=== PATIENT | male | born 1995 | race Caucasian/White ===

== ENCOUNTER 2020-10-18 13:09 | Emergency (ER) | payer SELFPAY ==
[2020-10-18 13:14] VITALS: BP 131/75; PULSE 76; RESP 16; TEMP 37.1; O2SAT 98
--- NOTE | 2020-10-18 13:17 | ED.GENADUL_ITS ---
Discharge Plan Disposition Patient Disposition: HOME Condition: Stable Discharge Details Clinical Impression: Abdominal pain, Nausea vomiting and diarrhea Primary Care Provider: None,None ED Provider: Gregg Mckinney Home Meds and New Rx's Prescriptions: New ondansetron HCl [Zofran] 4 mg tablet 4 mg PO Q8H PRNQty: 10 RF: 0 Discharge Instructions Instructions: Acute Nausea and Vomiting (ED), Abdominal Pain (ED) Additional Instructions: Zofran as directed. Ndbl-[id number] Imodium as directed. Clear liquid diet, advance to bananas, rice, applesauce, toast. Plenty of fluids to avoid dehydration. Please watch for new or worsening symptoms and return to the ER for any concerns. Unfortunately at this time you are unable to provide a stool sample, if symptoms persist you will likely need to have your stool tested. I have also placed you on the care management list to help expedite outpatient follow-up. Stand Alone Forms: Work Release Medical Decision Making This is a 24-year-old gentleman presenting for abdominal pain, nausea, vomiting, diarrhea that began on Friday after eating chili from a gas station. Denies any other symptoms. Has not taken any fmyv-bam-bsgveay medications for his symptoms. Clinically he appears well, nontoxic. He is afebrile. Abdomen is minimally tender in the epigastric region but there is no guarding, rebound, rigidity. Differential includes not excluded to food poisoning, gastroenteritis, appendicitis, bowel obstruction, colitis, etc. Will obtain routine laboratory values, give IV fluids, Zofran, reassess. Vital signs remained unremarkable. Laboratory values reveal a white blood cell count of 5.17 hemoglobin 14.9 hematocrit 44.6 platelet count 185. Electrolytes unremarkable. Creatinine 0.74 with a GFR greater than 60. LFTs minimally elevated. Lipase 195. Urinalysis unremarkable. Upon reassessment patient reports that his nausea has resolved completely. Reports mild epigastric discomfort. Will get a GI cocktail. Patient witnessed ambulating steadily to the restroom. Patient unable to provide stool sample here in the ER. He reports that he is feeling asymptomatic and is comfortable discharge. We discussed I will provide a prescription for Zofran, to use lhdc-hwc-uxazjca Imodium, and I will provide a work note for him. Discussed the importance of returning for new or worsening symptoms, would likely need to supply a stool sample done. Otherwise we have placed him on the care management with expedite outpatient care and primary care establishment Medical Records Medical records reviewed: Yes I reviewed the patient's medical records. Lab Data Lab results reviewed: Yes I reviewed the patient's lab results. Labs: Laboratory Tests Range/Units 10/18/20 10/18/20 10/18/20 13:30 13:30 14:25 WBC (4.4-10.8) 10^3/uL 5.17 RBC (4.36-5.78) 10^6/uL 4.42 Hgb (13.5-17.5) g/dL 14.9 Hct (40.0-50.0) % 44.6 MCV (80-95) fL 100.9 H MCH (27.0-33.0) pg 33.7 H MCHC (32.0-36.0) % 33.4 RDW (11.8-14.1) % 11.7 L Plt Count (130-400) 10^3/uL 185 MPV (8.0-11.0) fL 9.7 Immature Gran % 0.2 Neutrophils % 51.6 Lymphocytes % 31.1 Monocytes % 12.2 Eosinophils % 3.9 Basophils % 1.0 Nucleated RBC % % 0 Absolute Neutrophils (1.2-6.7) 10^3/uL 2.67 Absolute Lymphocytes (1.2-3.4) 10^3/uL 1.61 Absolute Monocytes (0.1-0.8) 10^3/uL 0.63 Absolute Eosinophils (0.0-0.7) 10^3/uL 0.20 Absolute Basophils (0.0-0.2) 10^3/uL 0.05 Sodium (136-145) mmol/L 139 Potassium (3.5-5.1) mmol/L 3.8 Chloride (98-107) mmol/L 104 Carbon Dioxide (21.0-32.0) mmol/L 24.7 Anion Gap (3-11) mmol/L 10.3 BUN (7-18) mg/dL 4 L Creatinine (0.70-1.30) mg/dL 0.75 Estimated GFR/1.73 m2 (mL/min/1.73m2) >= 60.00 Glucose (74-106) mg/dL 93 Calcium (8.5-10.1) mg/dL 9.2 Total Bilirubin (0.2-1.0) mg/dL 0.7 AST (15-37) U/L 101 H ALT (16-63) U/L 121 H Alkaline Phosphatase (46-116) U/L 121 H Total Protein (6.4-8.2) g/dL 7.7 Albumin (3.4-5.0) g/dL 4.2 Lipase (73-393) U/L 195 Urine Color (Yellow) Yellow Urine Clarity (Clear) Clear Urine pH (5-8) 7.5 Ur Specific [place] (1.005-1.025) 1.015 Urine Protein (Negative) mg/dL Negative Urine Ketones (Negative) mg/dL Negative Urine Blood (Negative) Negative Urine Nitrite (Negative) Negative Urine Bilirubin (Negative) Negative Urine Urobilinogen (Up TO 0.2) EU/dL 0.2 Ur Leukocyte Esterase (Negative) Negative Urine Glucose (Negative) mg/dL Negative HPI General Mode of arrival: ambulatory . Date/Time Provider Initiated Documentation: 10/18/20 13:10 . Limitations to Documentation: no limitations . Information obtained by: patient . HPI Narrative: This is a 24-year-old gentleman, denies any significant past medical history, presents to the ER for epigastric discomfort, nausea, vomiting, diarrhea going on for the past 3 days. He states that on Friday he ate some chili from a gas station, and his symptoms began several hours later. He denies any blood in his vomit. He denies any black tarry stools or bright red blood in his stools. He states that his diarrhea is mucousy-watery. Denies recent antibiotic therapy. Denies any lower abdominal discomfort or cramping. He has never had these symptoms before. He has not taken any rrry-vyf-gjilasi medications for his symptoms. He went to work yesterday, vomited there and they sent him home. He will require a work note to go back to work. Related Data Home Medications Medication Instructions Recorded Confirmed ondansetron HCl [Zofran] 4 mg PO Q8H PRN #10 tab 10/18/20 Previous Rx's Medication Instructions Recorded ondansetron HCl [Zofran] 4 mg PO Q8H PRN #10 tab 10/18/20 Allergies Allergy/AdvReac Type Severity Reaction Status Date / Time acetaminophen Allergy Severe Itching Unverified 10/18/20 13:22 bee venom protein (honey bee) Allergy Anaphylaxsi Unverified 10/18/20 13:23 s hydrocodone Allergy Unverified 10/18/20 13:22 morphine Allergy Unverified 10/18/20 13:22 venlafaxine HCl AdvReac Intermediate Agitation Unverified 10/18/20 13:22 [From Effexor] Review of Systems Constitutional Constitutional: Denies fatigue, Denies fever(s) and Denies headache(s) ENT Ears, Nose, Mouth, and Throat: Denies headache(s), Denies neck pain and Denies sore throat Cardiovascular Cardiovascular: Denies chest pain and Denies dyspnea Respiratory Respiratory: Denies cough and Denies dyspnea Gastrointestinal Gastrointestinal: Reports abdominal pain, Denies melena, Denies hematochezia, Denies constipation, Reports diarrhea, Reports nausea, Reports vomiting and Denies hematemesis Genitourinary Genitourinary: Denies dysuria Musculoskeletal Musculoskeletal: Denies neck pain Integumentary/Breasts Skin/Breast: Denies rash Neurologic Neurologic: Denies headache(s) Endocrine Endocrine: Denies fatigue [facility] Social History Smoking/Tobacco Use Status: Current every day Tobacco Type: cigarettes Smoking risk assessment performed?: Yes Alcohol Intake: current Alcohol Intake frequency: 3 or more drinks per day Alcohol type: hard liquor Drug use: Daily Substance use type: marijuana Do you feel safe at home: Yes Do you feel safe in your relationship?: Yes Exam Const General: cooperative, healthy appearing, comfortable and no acute distress Orientation: alert and awake [facility] Head: normal to inspection, normocephalic and atraumatic Mouth: moist mucous membranes Eyes General: appearance normal, both eyes and all related structures Conjunctivae: conjunctivae normal Sclera: sclerae normal Neck Neck: normal visual inspection, full ROM, no meningeal signs, trachea midline and supple Resp Effort & Inspection: normal respiratory effort and able to speak in complete sentences Auscultation: clear to auscultation bilaterally Cardio Rate: regular rate Rhythm: regular rhythm GI Inspection: normal to inspection Palpation: not firm, no guarding, no masses, no pulsatile masses and tender in the epigastrum (Mild); with no rebound tenderness Auscultation: normal bowel sounds Back/Spine/Pelvis Back: No back tenderness Skin General skin exam: no rashes or lesions noted Neuro General: patient alert, patient awake, moves all extremities and no focal motor deficits Cognition: normal cognition Speech: speech normal Gait: normal gait Motor: muscle tone normal throughout Sensory Exam: no sensory deficits noted Extrem General: normal to inspection, full ROM, capillary refill normal, no pedal edema and no calf tenderness Psych Appearance: grossly normal Mental Status: mental status grossly normal
[2020-10-18] MEDS: Normal Saline 1,000 ML 1000 ML IV (13:30)
[2020-10-18] MEDS: Ondansetron 4 MG/2 ML VIAL IVP (13:43)
[2020-10-18 13:46] LABS: Abs Immature Grans 0.01 10^3/uL (0.0-0.06); Absolute Basophil Count 0.05 10^3/uL (0.0-0.2); Absolute Lymphocyte Count 1.61 10^3/uL (1.2-3.4); Absolute Monocyte Count 0.63 10^3/uL (0.1-0.8); Absolute Neutrophil Count 2.67 10^3/uL (1.2-6.7); Eosinophils % 3.9; HCT 44.6 % (40.0-50.0); HGB 14.9 g/dL (13.5-17.5); Immature Grans % 0.2; Lymphocytes % 31.1; MCH 33.7 pg (27.0-33.0); MCHC 33.4 % (32.0-36.0); MCV 100.9 fL (80-95); MPV 9.7 fL (8.0-11.0); Monocytes % 12.2; Neutrophils % 51.6; Nucleated RBC 0 %; Platelet Count 185 10^3/uL (130-400); RBC 4.42 10^6/uL (4.36-5.78); RDW 11.7 % (11.8-14.1); RDW-SD 43.8 fL; WBC 5.17 10^3/uL (4.4-10.8)
[2020-10-18 14:01] LABS: ALT 121 U/L (16-63); AST 101 U/L (15-37); Albumin 4.2 g/dL (3.4-5.0); Alkaline Phosphatase 121 U/L (46-116); Anion Gap 10.3 mmol/L (3-11); BUN 4 mg/dL (7-18); Bilirubin, Total 0.7 mg/dL (0.2-1.0); CO2 24.7 mmol/L (21.0-32.0); CREATININE 0.75 mg/dL (0.70-1.30); Calcium 9.2 mg/dL (8.5-10.1); Chloride 104 mmol/L (98-107); Glucose 93 mg/dL (74-106); Lipase 195 U/L (73-393); Potassium 3.8 mmol/L (3.5-5.1); Sodium 139 mmol/L (136-145); Total Protein 7.7 g/dL (6.4-8.2)
--- NOTE | 2020-10-18 14:12 | NUR.NOTE ---
Nursing Note: Referral to establish care for patient given to Care Management. Tamica Marie
[2020-10-18 14:29] LABS: Bilirubin Negative (Negative); Blood Negative (Negative); Clarity Clear (Clear); Glucose Negative (Negative); Ketones Negative (Negative); Leukocyte Esterase Negative (Negative); Nitrite Negative (Negative); Specific Gravity 1.015 (1.005-1.025); Urobilinogen 0.2 EU/dL (Up TO 0.2); pH 7.5 (5-8)
[2020-10-18 14:52] VITALS: BP 110/61; PULSE 68; RESP 18; TEMP 36.8; O2SAT 99
--- NOTE | 2020-10-19 15:35 | CMPROGNOTE_ITS ---
- If Service Date Differs Date of service: 10/19/20 Time of Service: 15:35 Care Management Progress Note Will presents to the ED on 10/18/20 for abdominal pain. At the request of ED provider, IRENA coordinates a referral to Maggie Young NP, of [facility], on-call provider, to assist Armani in obtaining a follow up appointment and in establishing care with a PCP.
== END 2020-10-18 14:52 | disposition home or self-care (01) ==
PROVIDERS: Emergency Provider Physician Assistant
DX: R11.2 Nausea with vomiting, unspecified (principal); R19.7 Diarrhea, unspecified; R10.13 Epigastric pain
CPT/HCPCS: 36415; 80053; 83690; 96361; 96374; 99284; 81003; 85025; J2405

== ENCOUNTER 2020-11-07 14:48 | Emergency (ER) | payer MEDICAID, SELFPAY ==
--- NOTE | 2020-11-07 14:51 | ED.GENADUL_ITS ---
Discharge Plan Disposition Patient Disposition: HOME Condition: Improving Discharge Details Clinical Impression: Nausea, vomiting and diarrhea, Abdominal pain, Hepatomegaly, Alcohol abuse Primary Care Provider: None,None ED Provider: Marilyn Monroe Home Meds and New Rx's Prescriptions: New ondansetron 4 mg tablet,disintegrating 4 mg PO TID PRN (Reason: nausea and vomiting) Qty: 6 RF: 0 famotidine [Pepcid] 20 mg tablet 20 mg PO DAILY Qty: 14 RF: 0 Continued loperamide [Imodium A-D] 2 mg Tablet 2 mg PO Q4H PRNRF: 0 Discharge Instructions Instructions: Abuse of Alcohol (ED), Acute Nausea and Vomiting (ED), Acute Diarrhea (ED), Abdominal Pain (ED) Additional Instructions: Drink plenty of fluids and get plenty of rest. Take the Zofran as needed and directed for nausea and vomiting. Take the Pepcid daily as directed. Call the [facility] to discuss how to proceed with safely stopping drinking alcohol at [phone]. Return a stool sample to the hospital as directed. You will receive a call from care management regarding a follow-up appointment with a primary care doctor within the next week. Please return immediately to the hospital if you develop any worsening or new concerning symptoms such as fever, worsening vomiting or pain. Discharge Data Discharge Physician: Marilyn Monroe Medical Decision Making 24-year-old male with a history of anxiety, depression, chronic daily alcohol abuse who presents for vomiting, diarrhea and abdominal pain for the past few weeks. He was seen here on 10/09 for similar complaints and was noted to have some elevation of his LFTs but otherwise was discharged home after improvement with meds and given a prescription for Zofran. He states he did not fill this due to lack of funds. Patient appears somewhat uncomfortable. He is significantly tender in the right upper quadrant, left upper quadrant and epigastrium. No rigidity or guarding. Differential diagnosis includes pancreatitis, gastroenteritis, PUD, cholelithiasis, cholecystitis. Will place an IV, bolus IV fluids, screening labs, CT abdomen and pelvis and give Pepcid, GI cocktail and Zofran and reassess. Labs and imaging reviewed. Normal white blood cell count. Potassium 3.2. Elevation of T bili to 2.5, AST and ALT and alk phos slightly more elevated compared to previous. Lipase normal. CT abdomen and pelvis notes hepatomegaly and hepatic steatosis with possible enteritis. No evidence of gallstones. Patient reassessed and he feels better. 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 He appears nontoxic. Case and CT imaging reviewed with Dr. Gonzalez. More likely liver failure. Coagulation studies added but patient wanted to leave prior to these results. Discussed with patient that his excessive alcohol use is causing his hepatomegaly which could be causing a alcoholic gastritis or potential eventual liver failure. Patient is understanding of this possibility. He states he does not want to stay in the hospital. Through shared decision-making, will send patient home with Santa and Giacomo with plan for follow-up with the primary care doctor within the next week. He was also given [facility] information to safely stop drinking alcohol. We discussed the risks of abruptly stopping alcohol including or disability. Usual and customary return precautions given prior to discharge. Medical Records Medical records reviewed: Yes I reviewed the patient's medical records. Imaging Data Radiologic Study: Radiologist's impression: CT ABDOMEN PELVIS W CLINICAL HISTORY: epigastric/LUQ abd pain TECHNIQUE: Imaging Protocol: Axial computed tomography images with coronal and sagittal reformatted images were created and reviewed CONTRAST MATERIAL: Intravenous: Omnipaque 350 Contrast volume:100 mL Oral: No COMPARISON: No exams were available for comparison FINDINGS: ABDOMEN: Lung Bases: Normal where visualized. Liver: Decreased attenuation of the liver consistent with fatty infiltration. No measurable mass. The liver measures 22 cm in length. Portal, Superior Mesenteric, and Splenic Veins: Unremarkable. Gallbladder and Biliary Tract: No radiodense calculus or dilation. Pancreas: Normal density, no abnormal calcifications or inflammatory process. Spleen: Normal. Adrenals: No masses seen. Kidneys: Normal size, contour and axis. No radiodense stones or obstructive uropathy. No masses seen. Abdominal Aorta: Abdominal portion non-dilated. Bowel: Mild thickening of the wall of loops of small bowel in the left upper quadrant suspicious for enteritis. Appendix is unremarkable. Colonic diverticulosis but no evidence of acute diverticulitis. Peritoneal Cavity: No ascites, collection or mesenteric inflammatory response. No free air. Lymph Nodes: Within normal limits. Bones: Unremarkable. Soft Tissues: Unremarkable. PELVIS: Bladder: Symmetric distention, no gross wall thickening. Reproductive Organs: Unremarkable as visualized. Lymph Nodes: Within normal limits. Bones: Within normal limits. IMPRESSION: Bowel wall thickening in loops of of small bowel in the left upper quadrant suspicious for an infectious or inflammatory enteritis. Hepatomegaly and hepatic steatosis. Lab Data Lab results reviewed: Yes I reviewed the patient's lab results. Labs: Laboratory Tests Range/Units 11/07/20 11/07/20 11/07/20 15:20 15:20 15:20 WBC (4.4-10.8) 10^3/uL 5.34 RBC (4.36-5.78) 10^6/uL 4.51 Hgb (13.5-17.5) g/dL 15.2 Hct (40.0-50.0) % 44.3 MCV (80-95) fL 98.2 H MCH (27.0-33.0) pg 33.7 H MCHC (32.0-36.0) % 34.3 RDW (11.8-14.1) % 11.9 Plt Count (130-400) 10^3/uL 171 MPV (8.0-11.0) fL 10.3 Immature Gran % 0.2 Neutrophils % 49.1 Lymphocytes % 32.4 Monocytes % 13.1 Eosinophils % 3.9 Basophils % 1.3 Nucleated RBC % % 0 Absolute Neutrophils (1.2-6.7) 10^3/uL 2.62 Absolute Lymphocytes (1.2-3.4) 10^3/uL 1.73 Absolute Monocytes (0.1-0.8) 10^3/uL 0.70 Absolute Eosinophils (0.0-0.7) 10^3/uL 0.21 Absolute Basophils (0.0-0.2) 10^3/uL 0.07 Sodium (136-145) mmol/L 136 Potassium (3.5-5.1) mmol/L 3.2 L Chloride (98-107) mmol/L 98 Carbon Dioxide (21.0-32.0) mmol/L 25.6 Anion Gap (3-11) mmol/L 12.4 H BUN (7-18) mg/dL 4 L Creatinine (0.70-1.30) mg/dL 0.84 Estimated GFR/1.73 m2 (mL/min/1.73m2) >= 60.00 Glucose (74-106) mg/dL 92 Calcium (8.5-10.1) mg/dL 9.5 Magnesium (1.8-2.4) mg/dL 1.7 L Total Bilirubin (0.2-1.0) mg/dL 2.5 H AST (15-37) U/L 245 H ALT (16-63) U/L 171 H Alkaline Phosphatase (46-116) U/L 139 H Troponin I (<0.06) ng/mL < 0.05 Total Protein (6.4-8.2) g/dL 8.1 Albumin (3.4-5.0) g/dL 4.6 Lipase (73-393) U/L 244 HPI General Mode of arrival: ambulatory . Date/Time Provider Initiated Documentation: 11/07/20 14:50 . Limitations to Documentation: no limitations . Information obtained by: patient . HPI Narrative: Patient is a 24-year-old male with a history of anxiety and depression and heavy alcohol abuse presents for vomiting, diarrhea and abdominal pain for the last several weeks. Patient was seen here on 10/18 for similar symptoms and was [facility] which he states he was unable to fill due to lack of funds . He states he has been taking Imodium with some relief of his diarrhea. He has been vomiting 6-7 times daily which mainly consists of food and then bile. He states he has been having 8-10 episodes of watery brown diarrhea daily. He states his abdominal pain is intermittent, sharp, and the epigastrium, left upper and right upper quadrant. He states the pain is usually worse with movement after eating a large meal. He denies any fever, chest pain or shortness of breath. He states he drank 1/5 and a half of vodka daily for the past several years. He also smokes 1 pack cigarettes weekly and smokes marijuana daily. Patient states his mom of complications of pancreatitis in her 30s. Related Data Home Medications Medication Instructions Recorded Confirmed famotidine [Pepcid] 20 mg PO DAILY #14 tab 11/07/20 loperamide [Imodium A-D] 2 mg PO Q4H PRN 11/07/20 11/07/20 ondansetron 4 mg PO TID PRN #6 tab 11/07/20 Previous Rx's Medication Instructions Recorded famotidine [Pepcid] 20 mg PO DAILY #14 tab 11/07/20 ondansetron 4 mg PO TID PRN #6 tab 11/07/20 Allergies Allergy/AdvReac Type Severity Reaction Status Date / Time acetaminophen Allergy Severe Itching Unverified 11/07/20 14:57 bee venom protein (honey bee) Allergy Anaphylaxsi Unverified 11/07/20 14:57 s hydrocodone Allergy Unverified 11/07/20 14:57 morphine Allergy Unverified 11/07/20 14:57 venlafaxine HCl AdvReac Intermediate Agitation Unverified 11/07/20 14:57 [From Effexor] General PEDRO: 3 Review of Systems All systems reviewed & are unremarkable except as noted in HPI and below Constitutional Constitutional: Reports as per HPI, Denies chills and Denies fever(s) Eyes Eyes: Denies blurry vision ENT Ears, Nose, Mouth, and Throat: Denies dizziness, Denies sore throat and Denies throat swelling Cardiovascular Cardiovascular: Denies chest pain and Denies dyspnea Respiratory Respiratory: Denies cough and Denies dyspnea Gastrointestinal Gastrointestinal: Reports abdominal pain, Denies diarrhea, Reports nausea and Denies vomiting Genitourinary Genitourinary: Denies hematuria and Denies dysuria Musculoskeletal Musculoskeletal: Denies back pain and Denies numbness Integumentary/Breasts Skin/Breast: Denies lesions and Denies rash Neurologic Neurologic: Denies dizziness, Denies localized weakness and Denies numbness Allergic/Immunologic Allergic/Immunologic: Denies throat swelling [facility] Medical History (Updated 11/07/20 @ 17:41 by Marilyn Monroe DO) Anxiety Depression Surgical History (Updated 11/07/20 @ 17:09 by Marilyn Monroe DO) History of surgery on extremity wrist and finger Social History Smoking/Tobacco Use Status: Current every day Tobacco Type: cigarettes Smoking risk assessment performed?: Yes Alcohol Intake: current Alcohol Intake frequency: 3 or more drinks per day Alcohol type: hard liquor Drug use: Daily Substance use type: marijuana Current gender identity: male Do you feel safe at home: Yes Do you feel safe in your relationship?: Yes Exam Const General: cooperative and no acute distress Orientation: alert, awake and oriented x3 HENMT Head: normal to inspection Face and sinus: normal facial exam Eyes General: appearance normal, both eyes and all related structures EOM: EOM intact bilaterally Neck Neck: normal visual inspection and No submandibular swelling Lymphatic: no lymphadenopathy noted Chest Chest: normal inspection of the chest and no tenderness Resp Effort & Inspection: normal respiratory effort and able to speak in complete sentences Auscultation: clear to auscultation bilaterally Cardio Rate: regular rate Rhythm: regular rhythm GI Inspection: normal to inspection Palpation: soft, not firm, not rigid and tender in the epigastrum, in the LLQ and in the RUQ Auscultation: hypoactive bowel sounds Skin General skin exam: no rashes or lesions noted Neuro General: patient alert, patient awake and patient oriented x3 Cognition: normal cognition Speech: speech normal Motor: muscle tone normal throughout Sensory Exam: no sensory deficits noted Extrem General: normal to inspection, full ROM, capillary refill normal, no calf tenderness bilaterally and no edema Psych Appearance: grossly normal Mental Status: mental status grossly normal Speech and Movement: speech and movement normal Affect: normal affect
[2020-11-07 14:54] VITALS: BP 124/84; PULSE 104; RESP 18; TEMP 36; O2SAT 97
--- NOTE | 2020-11-07 15:15 | DI.CT_ITS ---
EXAM: CT ABDOMEN PELVIS W CLINICAL HISTORY: epigastric/LUQ abd pain TECHNIQUE: Imaging Protocol: Axial computed tomography images with coronal and sagittal reformatted images were created and reviewed CONTRAST MATERIAL: Intravenous: Omnipaque 350 Contrast volume:100 mL Oral: No COMPARISON: No exams were available for comparison FINDINGS: ABDOMEN: Lung Bases: Normal where visualized. Liver: Decreased attenuation of the liver consistent with fatty infiltration. No measurable mass. Th e liver measures 22 cm in length. Portal, Superior Mesenteric, and Splenic Veins: Unremarkable. Gallbladder and Biliary Tract: No radiodense calculus or dilation. Pancreas: Normal density, no abnormal calcifications or inflammatory process. Spleen: Normal. Adrenals: No masses seen. Kidneys: Normal size, contour and axis. No radiodense stones or obstructive uropathy. No masses seen. Abdominal Aorta: Abdominal portion non-dilated. Bowel: Mild thickening of the wall of loops of small bowel in the left upper quadrant suspicious for enteritis. Appendix is unremarkable. Colonic diverticulosis but no evidence of acute diverticulitis. Peritoneal Cavity: No ascites, collection or mesenteric inflammatory response. No free air. Lymph Nodes: Within normal limits. Bones: Unremarkable. Soft Tissues: Unremarkable. PELVIS: Bladder: Symmetric distention, no gross wall thickening. Reproductive Organs: Unremarkable as visualized. Lymph Nodes: Within normal limits. Bones: Within normal limits. IMPRESSION: Bowel wall thickening in loops of of small bowel in the left upper quadrant suspicious for an infecti ous or inflammatory enteritis. Hepatomegaly and hepatic steatosis. RADIATION DOSE DELIVERED: 729.96mGy.cm Total DLP DATA REPOSITORY: All CT scans at this facility are submitted to the National Radiology Data Registry (NRDR) Dose Index Registry (DIR) with the [employer] ([employer]). RADIATION OPTIMIZATION: All CT scans at this facility use at least one of these dose optimization te chniques: automated exposure control; mA and/or kV adjustment per patient size (includes targeted exa ms where dose is matched to clinical indication); or iterative reconstruction.
[2020-11-07] MEDS: Normal Saline 1,000 ML 1000 ML IV (15:19)
[2020-11-07] MEDS: FAMOTIDINE 20 MG/50 ML BAG 200 MG IVPB (15:25)
[2020-11-07] MEDS: Ondansetron 4 MG/2 ML VIAL IVP (15:26)
[2020-11-07] MEDS: Omnipaque 350 MG/ML 100 ML BTL IJ (15:36)
[2020-11-07] MEDS: Normal Saline - Diluent 50 ML VIAL IV (15:38)
[2020-11-07 15:41] LABS: Abs Immature Grans 0.01 10^3/uL (0.0-0.06); Absolute Basophil Count 0.07 10^3/uL (0.0-0.2); Absolute Eosinophil Count 0.21 10^3/uL (0.0-0.7); Absolute Lymphocyte Count 1.73 10^3/uL (1.2-3.4); Absolute Neutrophil Count 2.62 10^3/uL (1.2-6.7); Basophils % 1.3; Eosinophils % 3.9; HCT 44.3 % (40.0-50.0); HGB 15.2 g/dL (13.5-17.5); Immature Grans % 0.2; Lymphocytes % 32.4; MCH 33.7 pg (27.0-33.0); MCHC 34.3 % (32.0-36.0); MCV 98.2 fL (80-95); MPV 10.3 fL (8.0-11.0); Monocytes % 13.1; Neutrophils % 49.1; Nucleated RBC 0 %; Platelet Count 171 10^3/uL (130-400); RBC 4.51 10^6/uL (4.36-5.78); RDW 11.9 % (11.8-14.1); RDW-SD 43.6 fL; WBC 5.34 10^3/uL (4.4-10.8)
[2020-11-07 15:58] LABS: Lipase 244 U/L (73-393); Magnesium 1.7 mg/dL (1.8-2.4)
[2020-11-07 16:07] LABS: ALT 171 U/L (16-63); AST 245 U/L (15-37); Albumin 4.6 g/dL (3.4-5.0); Alkaline Phosphatase 139 U/L (46-116); Anion Gap 12.4 mmol/L (3-11); BUN 4 mg/dL (7-18); Bilirubin, Total 2.5 mg/dL (0.2-1.0); CO2 25.6 mmol/L (21.0-32.0); CREATININE 0.84 mg/dL (0.70-1.30); Calcium 9.5 mg/dL (8.5-10.1); Chloride 98 mmol/L (98-107); Glucose 92 mg/dL (74-106); Potassium 3.2 mmol/L (3.5-5.1); Sodium 136 mmol/L (136-145); Total Protein 8.1 g/dL (6.4-8.2)
[2020-11-07 16:14] LABS: Troponin I < 0.05 ng/mL (<0.06)
[2020-11-07 16:56] VITALS: BP 124/83; RESP 16; O2SAT 98
--- NOTE | 2020-11-07 17:44 | NUR.NOTE ---
referral sent to cm to establish pcp Tamir ED Nursing Note:
[2020-11-07 17:48] LABS: C-Reactive Protein 0.09 mg/dL (0.0-0.3); INR 1.1 (0.9-1.1); PTT Activated 26.2 sec (21.0-27.5)
[2020-11-07 17:53] VITALS: BP 124/80; PULSE 88; RESP 16; TEMP 36.4; O2SAT 98
[2020-11-07] MEDS: Ondansetron O.D.T. 4 MG TABEF, 3 TABS/BTL PO (17:53)
[2020-11-07 17:54] LABS: GGT 317 U/L (15-85)
== END 2020-11-07 17:53 | disposition home or self-care (01) ==
PROVIDERS: Emergency Provider Physician Assistant
DX: K76.89 Other specified diseases of liver (principal); R11.2 Nausea with vomiting, unspecified; R10.13 Epigastric pain; F10.10 Alcohol abuse, uncomplicated; R19.7 Diarrhea, unspecified
CPT/HCPCS: 36415; 80053; 83690; 96361; 96365; 96375; 99285; 74177; 82977; 83735; 84484; 85025; 85610; 85730; 86140; J2405; J3490

== ENCOUNTER 2020-11-21 02:19 | Outpatient (CLI) | payer MEDICAID, SELFPAY ==
[2020-11-22 12:44] LABS: COVID-19 RT-PCR UVMMC Result Negative (Negative)
== END 2020-11-21 02:20 | disposition home or self-care (01) ==
LOC: LBO 02:20
PROVIDERS: Visit Provider Family Medicine
DX: Z20.822 Contact with and (suspected) exposure to COVID-19 (principal)
CPT/HCPCS: U0003

== ENCOUNTER 2020-12-06 03:20 | Outpatient (CLI) | payer MEDICAID, SELFPAY ==
[2020-12-06 13:21] LABS: Abs Immature Grans 0.02 10^3/uL (0.0-0.06); Absolute Basophil Count 0.08 10^3/uL (0.0-0.2); Absolute Eosinophil Count 0.63 10^3/uL (0.0-0.7); Absolute Monocyte Count 0.87 10^3/uL (0.1-0.8); Absolute Neutrophil Count 4.32 10^3/uL (1.2-6.7); Basophils % 0.9; Eosinophils % 7.2; HCT 46.1 % (40.0-50.0); HGB 15.7 g/dL (13.5-17.5); Immature Grans % 0.2; Lymphocytes % 32.1; MCH 33.7 pg (27.0-33.0); MCHC 34.1 % (32.0-36.0); MCV 98.9 fL (80-95); MPV 10.1 fL (8.0-11.0); Neutrophils % 49.6; Nucleated RBC 0 %; Platelet Count 263 10^3/uL (130-400); RBC 4.66 10^6/uL (4.36-5.78); RDW 11.5 % (11.8-14.1); RDW-SD 42.1 fL; WBC 8.72 10^3/uL (4.4-10.8)
[2020-12-06 13:30] LABS: INR 1.1 (0.9-1.1); Prothrombin Time 10.8 sec (9.3-11.0)
[2020-12-06 14:31] LABS: ALT 69 U/L (16-63); AST 35 U/L (15-37); Albumin 4.2 g/dL (3.4-5.0); Alkaline Phosphatase 108 U/L (46-116); Anion Gap 9.2 mmol/L (3-11); BUN 5 mg/dL (7-18); Bilirubin, Total 0.3 mg/dL (0.2-1.0); CO2 26.8 mmol/L (21.0-32.0); CREATININE 0.8 mg/dL (0.70-1.30); Calcium 9.3 mg/dL (8.5-10.1); Chloride 103 mmol/L (98-107); Glucose 110 mg/dL (74-106); Potassium 3.9 mmol/L (3.5-5.1); Sodium 139 mmol/L (136-145); Total Protein 7.2 g/dL (6.4-8.2)
== END 2020-12-06 03:21 | disposition home or self-care (01) ==
LOC: LBO 03:20
PROVIDERS: Visit Provider Nurse Practitioner Family
DX: K76.0 Fatty (change of) liver, not elsewhere classified (principal); R79.89 Other specified abnormal findings of blood chemistry
CPT/HCPCS: 36415; 80053; 85025; 85610

== ENCOUNTER 2021-03-27 17:23 | Outpatient (REF) | payer MEDICAID, SELFPAY ==
[2021-03-27 20:26] LABS: Abs Immature Grans 0.02 10^3/uL (0.0-0.06); Absolute Basophil Count 0.03 10^3/uL (0.0-0.2); Absolute Eosinophil Count 0.19 10^3/uL (0.0-0.7); Absolute Lymphocyte Count 2.04 10^3/uL (1.2-3.4); Absolute Monocyte Count 0.93 10^3/uL (0.1-0.8); Absolute Neutrophil Count 5.07 10^3/uL (1.2-6.7); Basophils % 0.4; Eosinophils % 2.3; HCT 39.2 % (40.0-50.0); Immature Grans % 0.2; Lymphocytes % 24.6; MCH 33.2 pg (27.0-33.0); MCHC 33.2 % (32.0-36.0); MCV 100.3 fL (80-95); MPV 10.7 fL (8.0-11.0); Monocytes % 11.2; Neutrophils % 61.3; Nucleated RBC 0 %; Platelet Count 208 10^3/uL (130-400); RBC 3.91 10^6/uL (4.36-5.78); RDW 12.2 % (11.8-14.1); RDW-SD 45.1 fL; WBC 8.28 10^3/uL (4.4-10.8)
[2021-03-27 20:45] LABS: ALT 51 U/L (16-63); AST 51 U/L (15-37); Albumin 3.7 g/dL (3.4-5.0); Alkaline Phosphatase 74 U/L (46-116); Amylase 52 U/L (25-115); Anion Gap 8.1 mmol/L (3-11); BUN 7 mg/dL (7-18); Bilirubin, Total 0.9 mg/dL (0.2-1.0); CO2 28.9 mmol/L (21.0-32.0); CREATININE 0.8 mg/dL (0.70-1.30); Chloride 102 mmol/L (98-107); Glucose 81 mg/dL (74-106); Lipase 42 U/L (73-393); Potassium 4.2 mmol/L (3.5-5.1); Sodium 139 mmol/L (136-145); Total Protein 6.5 g/dL (6.4-8.2)
[2021-03-27 22:07] LABS: Triglyceride 66 mg/dL (<150)
== END 2021-03-27 17:24 | disposition home or self-care (01) ==
LOC: NCHCN 17:23
PROVIDERS: PCP Nurse Practitioner Family; Visit Provider Nurse Practitioner Family
DX: R10.12 Left upper quadrant pain (principal); K76.0 Fatty (change of) liver, not elsewhere classified; F10.10 Alcohol abuse, uncomplicated; K85.90 Acute pancreatitis without necrosis or infection, unspecified; F17.210 Nicotine dependence, cigarettes, uncomplicated
CPT/HCPCS: 80053; 83690; 82150; 84478; 85025

== ENCOUNTER 2021-03-29 01:22 | Outpatient (CLI) | payer MEDICAID, SELFPAY ==
--- NOTE | 2021-03-29 11:45 | DI.US_ITS ---
Exam(s) US ABDOMEN EXAM: US ABDOMEN CLINICAL HISTORY: r/o pancreatitis R10.9 ABD PAIN TECHNIQUE: Ultrasound abdomen performed using standard protocol. COMPARISON: CT CT ABDOMEN PELVIS W from 11/07/2020 FINDINGS: LIVER: Enlarged at 19.4 cm in length. Increased echogenicity consistent with hepatic steatosis. No focal mass. GALLBLADDER: No evidence of cholelithiasis. No evidence of wall thickening. No pericholecystic fluid identified. BOSWELL'S SIGN: Negative. BILIARY SYSTEM: No intrahepatic or extrahepatic biliary ductal dilation. KIDNEYS: Kidneys are symmetric in size. No evidence of renal calculi. No evidence of hydronephrosis. No renal mass or cyst identified. PANCREAS: Normal where visualized. No surrounding fluid. SPLEEN: Not enlarged. ABDOMINAL AORTA AND IVC: Visualized portions normal caliber. ASCITES: None seen. IMPRESSION: Enlarged fatty liver. No gross evidence of pancreatitis. DATA REPOSITORY:
== END 2021-03-29 01:42 ==
PROVIDERS: PCP Nurse Practitioner Family; Visit Provider Nurse Practitioner Family
DX: R10.12 Left upper quadrant pain (principal); K76.0 Fatty (change of) liver, not elsewhere classified; R16.0 Hepatomegaly, not elsewhere classified
CPT/HCPCS: 76700

== ENCOUNTER 2021-04-27 07:24 | Emergency (ER) | payer MEDICAID, SELFPAY ==
[2021-04-27 07:27] VITALS: BP 128/83; PULSE 63; RESP 16; TEMP 36.2; O2SAT 97
--- NOTE | 2021-04-27 07:45 | ED.GENADUL_ITS ---
Discharge Plan Disposition Patient Disposition: HOME Discharge Details Clinical Impression: Encounter for medical screening examination, Alcohol use disorder, Opioid use disorder, Cocaine abuse Primary Care Provider: Jenn Sena ED Provider: Uzair Olguin Home Meds and New Rx's Prescriptions: New naloxone 4 mg/actuation spray,non-aerosol 4 mg intranasal Q2M PRN (Reason: opioid overdose) Qty: 2 RF: 0 Continued loperamide [Imodium A-D] 2 mg Tablet 2 mg PO Q4H PRNRF: 0 famotidine [Pepcid] 20 mg tablet 20 mg PO DAILY Qty: 14 RF: 0 Discharge Instructions Instructions: Cocaine Abuse (ED), Alcohol Use Disorder (ED), Opioid Use Disorder (ED) Additional Instructions: You have been seen today for a medical screening. Medical screening exam was performed and no acute life-threatening illness was identified. Please follow- up with [facility] as planned. Please follow-up with [facility]. Please return to the emergency department for any worsening or new concerning symptoms. Referrals: [facility] [Outside] Jenn Sena, [employer] [Primary Care Provider] - Medical Decision Making 25-year-old male with alcohol use disorder, opioid use disorder, cocaine abuse, here requesting medical screening exam is prerequisite to pursuing detox treatment at [facility]. A medical screening exam performed and no acute medical condition identified. 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 They will meet the patient here in the emergency department. Patient is not interested in covid vaccine. HPI General Mode of arrival: ambulatory . Date/Time Provider Initiated Documentation: 04/27/21 07:37 . Limitations to Documentation: no limitations . Information obtained by: patient . HPI Narrative: 25-year-old male with history of alcohol use disorder, prior pancreatitis, opioid use disorder, cocaine abuse, presents with chief complaint of need for medical screening. Patient notes she is trying to get into [facility] rehab for his alcohol and drug abuse and he called yesterday and they requested he had a medical screening exam. He has no complaints other than noting the need to receive treatment for his addictions. He denies pain. He states he has been cutting back on alcohol use significantly since this past winter. He still does consume heavy amounts of beer daily. He states he also smokes cocaine and heroin regularly. Related Data Home Medications Medication Instructions Recorded Confirmed famotidine [Pepcid] 20 mg PO DAILY #14 tab 11/07/20 04/27/21 loperamide [Imodium A-D] 2 mg PO Q4H PRN 11/07/20 04/27/21 naloxone 4 mg INTRANASAL Q2M PRN #2 ea 04/27/21 Previous Rx's Medication Instructions Recorded famotidine [Pepcid] 20 mg PO DAILY #14 tab 11/07/20 naloxone 4 mg INTRANASAL Q2M PRN #2 ea 04/27/21 Allergies Allergy/AdvReac Type Severity Reaction Status Date / Time acetaminophen Allergy Severe Itching Verified 04/27/21 07:32 bee venom protein (honey bee) Allergy Anaphylaxsi Verified 04/27/21 07:32 s hydrocodone Allergy Verified 04/27/21 07:32 morphine Allergy Verified 04/27/21 07:32 venlafaxine HCl AdvReac Intermediate Agitation Verified 04/27/21 07:32 [From Effexor] General Stated Complaint: ETOHWithdr PEDRO: 3 Review of Systems All systems reviewed & are unremarkable except as noted in HPI and below Constitutional Constitutional: Reports fatigue and Denies fever(s) Cardiovascular Cardiovascular: Denies chest pain Respiratory Respiratory: Denies cough Gastrointestinal Gastrointestinal: Denies abdominal pain, Denies nausea and Denies vomiting Endocrine Endocrine: Reports fatigue PFSH Medical History Alcohol use disorder Anxiety and depression Cannabis dependence Hepatic steatosis Insomnia Tobacco use disorder Surgical History History of surgery on extremity wrist and finger Status post scrotal varicocelectomy Family History Mother , 2/2 pancreatitis Alcohol abuse Asthma Cancer Cervical Depression Anxiety Father Alcohol abuse Anxiety Social History Smoking/Tobacco Use Status: Current every day Tobacco Type: cigarettes Smoking packs per day: 0.25 Smoking cigarettes per day: 5.0 Years smoked: 4 Smoking pack-years: 1.00 Smoking risk assessment performed?: Yes Alcohol Intake: current Alcohol Intake frequency: 3 or more drinks per day Alcohol type: hard liquor Drug use: Daily Substance use type: marijuana, crack/cocaine and heroin Adopted: Yes (Was adopted by his grandparents) Caregiver/Support person: Yes (Local support person: aunt) Foster care: Yes Household members: other Details: Homeless senior care Housing: homeless Communication Needs: None Education Level: high school Details: GED Do you need help understanding health information?: Rarely 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 Sexually active: Yes Do you think of yourself as: straight/heterosexual Current gender identity: male Do you feel safe at home: Yes Do you feel safe in your relationship?: Yes Exam Const General: cooperative and no acute distress HENMT Mouth: moist mucous membranes Eyes Conjunctivae: normal conjunctivae Sclera: normal sclerae Neck Neck: trachea midline and supple Resp Auscultation: clear to auscultation bilaterally, no rales, no rhonchi and no wheezes Cardio Rate: regular rate and not tachycardic Rhythm: regular rhythm Heart Sounds: no murmurs GI Palpation: soft, not firm, no guarding, no masses, not rigid and nontender Skin General skin exam: no rashes or lesions noted Neuro General: patient alert, patient awake, patient oriented x3 and tone normal Extrem General: no edema Psych Appearance: grossly normal Mental Status: mental status grossly normal Course Vital Signs Vital signs: Vital Signs Temperature 36.2 C L 04/27/21 07:27 Pulse 63 04/27/21 07:27 Respiratory Rate 16 04/27/21 07:27 Blood Pressure 128/83 04/27/21 07:27 Pulse Oximetry 97 04/27/21 07:27 Temperature 36.2 C L 04/27/21 07:27 Temperature Source Temporal Artery Scan 04/27/21 07:27 Pulse 63 04/27/21 07:27 Respiratory Rate 16 04/27/21 07:27 Blood Pressure 128/83 04/27/21 07:27 Blood Pressure Position Sitting 04/27/21 07:27 Pulse Oximetry 97 04/27/21 07:27 Oxygen Delivery Method Room Air 04/27/21 07:27 Oxygen Flow Rate 0 04/27/21 07:27 Lab/Test Results Lab/Test Results: Laboratory Tests Range/Units 04/27/21 07:34 Urine Color Cancelled Urine Clarity Cancelled Urine pH Cancelled Ur Specific [place] Cancelled Urine Protein Cancelled Urine Ketones Cancelled Urine Blood Cancelled Urine Nitrite Cancelled Urine Bilirubin Cancelled Urine Urobilinogen Cancelled Ur Leukocyte Esterase Cancelled Urine Glucose Cancelled
[2021-04-27 08:05] VITALS: BP 128/78; PULSE 86; RESP 18; O2SAT 98
== END 2021-04-27 08:22 | disposition home or self-care (01) ==
PROVIDERS: Emergency Provider Student in an Organized Health Care Education/Training Program; PCP Nurse Practitioner Family
DX: F10.10 Alcohol abuse, uncomplicated (principal); F11.10 Opioid abuse, uncomplicated; F14.10 Cocaine abuse, uncomplicated
CPT/HCPCS: 99283; 81003; 99284